=== PATIENT | male | born 1945 | race Caucasian/White ===

== ENCOUNTER → 2016-05-20 | Outpatient (CLI) | payer MEDICARE | LOC: GMAB 14:15 | PROVIDERS: ATTEND Family Medicine | DX: C61 Malignant neoplasm of prostate (principal) ==

== ENCOUNTER → 2016-06-21 | Outpatient (CLI) | payer MEDICARE | END | disposition home or self-care (01) | LOC: GMAB 10:26 | PROVIDERS: ATTEND Family Medicine | DX: Z85.46 Personal history of malignant neoplasm of prostate (principal); I10 Essential (primary) hypertension ==

== ENCOUNTER → 2016-08-12 | Outpatient (CLI) | payer MEDICARE | LOC: GMAB 13:54 | PROVIDERS: ATTEND Family Medicine | DX: C61 Malignant neoplasm of prostate (principal) ==

== ENCOUNTER → 2016-11-04 | Outpatient (CLI) | payer MEDICARE | END | disposition home or self-care (01) | LOC: GMAB 10:45 | PROVIDERS: ATTEND Family Medicine | DX: C61 Malignant neoplasm of prostate (principal) ==

== ENCOUNTER → 2017-01-26 | Outpatient (CLI) | payer MEDICARE | END | disposition home or self-care (01) | LOC: GMAB 10:42 | PROVIDERS: ATTEND Family Medicine | DX: C61 Malignant neoplasm of prostate (principal) ==

== ENCOUNTER → 2017-01-27 | Outpatient (CLI) | payer MEDICARE ==
--- NOTE | 2017-02-03 08:39 | NM ---
EXAM DESCRIPTION: Bone Scan, Whole Body CLINICAL HISTORY: 71 years Male, prostate cancer COMPARISON: None. FINDINGS: Whole body bone scan was performed after the IV administration of 26.7 mCi technetium 99 M-MDP. Delay between radiopharmaceutical administration and imaging is not indicated. Small foci of increased activity in both feet and AC joints are likely of degenerative origin. No additional pathologic activity is noted in the axial or visualized portions of the appendicular skeleton. Specifically, I see no scintigraphic evidence of bony metastatic disease. Physiologic soft tissue activity in the kidneys and bladder. IMPRESSION: No evidence of bony metastatic disease. Electronically signed by: Oscar Solano MD 02/03/2017 8:37 AM CDT
== END ==
LOC: NM 09:22
PROVIDERS: ATTEND Internal Medicine Hematology & Oncology
DX: C61 Malignant neoplasm of prostate (principal)

== ENCOUNTER → 2017-04-27 | Outpatient (CLI) | payer MEDICARE | END | disposition home or self-care (01) | LOC: GMAB 14:47 | PROVIDERS: ATTEND Family Medicine | DX: C61 Malignant neoplasm of prostate (principal) ==

== ENCOUNTER → 2017-06-27 | Outpatient (CLI) | payer MEDICARE | LOC: GMAB 11:35 | PROVIDERS: ATTEND Family Medicine | DX: I10 Essential (primary) hypertension (principal); C61 Malignant neoplasm of prostate ==

== ENCOUNTER → 2017-07-14 | Outpatient (CLI) | payer MEDICARE ==
--- NOTE | 2017-07-14 18:38 | US ---
EXAM DESCRIPTION: Carotid Duplex CLINICAL HISTORY: OCCLUSION AND STENOSIS OF BILAT. CAROTID COMPARISON: None Available. TECHNIQUE: Carotid Doppler ultrasound FINDINGS: Calcific atherosclerotic disease is observed in both carotids slightly more pronounced on the left. There is no acceleration of flow in either carotid system to suggest a significant stenosis. Antegrade flow seen in both vertebral arteries. IMPRESSION: No hemodynamically significant stenosis is detected. Electronically signed by: Reji Greer MD 07/14/2017 6:36 PM CDT
== END ==
LOC: US 07:51
PROVIDERS: ATTEND Family Medicine
DX: I65.23 Occlusion and stenosis of bilateral carotid arteries (principal)

== ENCOUNTER → 2017-08-15 | Outpatient (CLI) | payer MEDICARE ==
--- NOTE | 2017-08-15 11:27 | US ---
EXAM DESCRIPTION: Aorta CLINICAL HISTORY: 72 years Male, AAA COMPARISON: None. TECHNIQUE: Sonogram of the aorta with color Doppler FINDINGS: Positive color flow is seen in the aorta on color Doppler imaging. No aortic aneurysm. Proximal aorta measures 2 cm in diameter on longitudinal image. Mid aorta measures 2.2 cm in AP dimension on longitudinal image. Distal aorta measures 2 cm in AP dimension on longitudinal image. Cross-sectional images include artifactually large mediolateral measurements most likely due to aortic curvature rather than true dilatation. Right common iliac artery measures 1.4 cm in diameter and the left common iliac artery measures 1.0 cm in diameter. IMPRESSION: Negative for evidence of abdominal aortic aneurysm. Electronically signed by: Prashant Jeronimo MD 08/15/2017 11:26 AM CDT
== END ==
LOC: US 07:54
PROVIDERS: ATTEND Family Medicine
DX: I71.4 Abdominal aortic aneurysm, without rupture (principal)

== ENCOUNTER → 2017-10-12 | Outpatient (CLI) | payer MEDICARE | LOC: GMAB 15:20 | PROVIDERS: ATTEND Family Medicine | DX: C61 Malignant neoplasm of prostate (principal) ==

== ENCOUNTER → 2018-01-05 | Outpatient (CLI) | payer MEDICARE | LOC: GMAE 10:50 | PROVIDERS: ATTEND Family Medicine | DX: C61 Malignant neoplasm of prostate (principal) ==

== ENCOUNTER → 2018-03-30 | Outpatient (CLI) | payer MEDICARE | LOC: GMAE 11:11 | PROVIDERS: ATTEND Family Medicine | DX: C61 Malignant neoplasm of prostate (principal) ==

== ENCOUNTER → 2018-12-07 | Outpatient (CLI) | payer MEDICARE | LOC: GMAE 10:31 | PROVIDERS: ATTEND Family Medicine | DX: C61 Malignant neoplasm of prostate (principal) ==

== ENCOUNTER → 2019-03-01 | Outpatient (CLI) | payer MEDICARE | LOC: GMAE 10:33 | PROVIDERS: ATTEND Family Medicine | DX: Z85.46 Personal history of malignant neoplasm of prostate (principal); Z79.899 Other long term (current) drug therapy ==

== ENCOUNTER → 2019-05-22 | Outpatient (CLI) | payer MEDICARE | LOC: GMAE 10:21 | PROVIDERS: ATTEND Family Medicine | DX: C61 Malignant neoplasm of prostate (principal) ==

== ENCOUNTER → 2019-09-06 | Outpatient (CLI) | payer MEDICARE | LOC: GMAE 11:21 | PROVIDERS: ATTEND Family Medicine | DX: C61 Malignant neoplasm of prostate (principal) ==

== ENCOUNTER → 2019-11-29 | Outpatient (CLI) | payer MEDICARE, OTHER | LOC: GMAE 10:20 | PROVIDERS: ATTEND Family Medicine | DX: C61 Malignant neoplasm of prostate (principal) ==

== ENCOUNTER → 2019-12-25 | Outpatient (CLI) | payer MEDICARE, OTHER ==
--- NOTE | 2019-12-26 14:38 | CT ---
Procedure: CT LUNG SCREENING Exam Date: December 25, 2019. Ordering Provider: Geovanny Alanis Clinical Indication: PERSONAL HISTORY OF TOBACCO DEPENDENCE 13 years smoking cessation. 72 pack years. This patient meets eligibility criteria for low-dose CT lung cancer screening. Comparison: Low-dose CT lung cancer screening July 2018. Technique: Using a multislice scanner, sequential helical axial imaging was obtained in the thorax, 2.5 mm thickness, 2.5 mm separation, from the level of the thoracic inlet through the lung bases without IV contrast. A low dose protocol was utilized for BMI less than 30: BMI: 29. CTDI: 1.76 mGy. 120. kVp. 45 mA. DLP 71 mGy-cm. 2D sagittal and coronal reconstructed images, 6.0 mm thickness, were obtained. This exam was performed according to our departmental dose optimization program which includes use of automated exposure control, adjustment of the mA and/or kV according to patient size and/or use of iterative reconstruction technique. Nodule measurements under 10 mm are given as mean value of 3 axes diameters. FINDINGS: Lungs and large airways: Multiple emphysematous blebs in a centrilobular pattern and predominantly the upper lung melvin. 3 mm focal pleural thickening more likely than nodule lateral left lower lobe. Bibasilar dependent atelectasis more left than right. No new abnormal nodules and no mass. No focal or new infiltrate. Pleura and space: Focal thickening. No acute process. Mediastinum and stanislaw: evaluation limited by low dose technique and lack of IV contrast. Small lymph nodes no dominant soft tissue mass. Heart and great vessels: Coronary artery and aortic calcifications. Ascending aorta 4.2 cm. 2.9 cm descending aorta at same level. 3 cm at the origin of the left common carotid. Stable since the prior study. Chest wall, lower neck, axillae: Evaluation also limited by same factors as described above. Normal size axillary nodes. Upper abdomen: Evaluation limited by low-dose technique. No free air or free fluid in the included peritoneal space. Adrenal glands and spleen normal size and density stable. Circumscribed radiodense 2 mm nodule is circumscribed on the lateral cortex of the left kidney. Hounsfield density +50. Left kidney was not included on the prior scan.. Osseous structures: Evaluation limited by low dose MIP technique. Minimal concavity in the T3 superior endplate stable from the prior study. Mild arthrosis bilateral sternoclavicular joints. IMPRESSION: Emphysematous changes upper lung melvin. No new or abnormal nodules. No mass. No new focal infiltrate.. [facility] Best Practice Recommendations: please see below for Lung RADS category and FOLLOW-UP.* *Lung RADS category Category 1S - No nodule or definitely benign nodules (probability of malignancy less than 1%). Follow-up: Continue annual screening with Low Dose Chest CT in 12 months. . 2. Lung RADS Modifier S - Clinically Significant or Potentially Clinically Significant Findings (non lung cancer). Solid, 10 mm, renal mass projecting from the upper lateral cortex of the left kidney. Recommend follow-up ultrasound correlation. Electronically signed by: Donnie Power MD 12/26/2019 2:32 PM CDT
== END ==
LOC: CT 10:00
PROVIDERS: ATTEND Family Medicine
DX: Z87.891 Personal history of nicotine dependence (principal); Z12.2 Encounter for screening for malignant neoplasm of respiratory organs; J43.9 Emphysema, unspecified

== ENCOUNTER → 2020-02-21 | Outpatient (CLI) | payer MEDICARE | LOC: GMAE 10:57 | PROVIDERS: ATTEND Family Medicine | DX: C61 Malignant neoplasm of prostate (principal) ==

== ENCOUNTER → 2020-05-21 | Outpatient (CLI) | payer MEDICARE | LOC: GMAE 11:36 | PROVIDERS: ATTEND Family Medicine | DX: C61 Malignant neoplasm of prostate (principal) ==